=== PATIENT | male | born 1975 | race Caucasian/White ===

== ENCOUNTER 2018-10-02 21:35 | Emergency (ER) | payer SELFPAY ==
[~2018-10-02] VITALS: Wt 101.9 kg
[2018-10-02 21:39] VITALS: BP 146/83; PULSE 69; RESP 19
== END 2018-10-03 02:15 | disposition left against medical advice (07) ==
LOC: FTE 21:35
DX: Z53.21 Procedure and treatment not carried out due to patient leaving prior to being seen by health care provider (principal)